=== PATIENT | male | born 2000 | race Caucasian/White ===

== ENCOUNTER 2024-08-19 13:55 | Emergency (ER) | payer OTHER, MEDICARE, SELFPAY ==
[2024-08-19 13:58] VITALS: BP 123/94
[2024-08-19 15:00] VITALS: BMI 16.9
[2024-08-19 15:21] LABS: % Basophils 0.6 % (0-2); % Eosinophils 0.2 % (0-6); % Immature Granulocytes 0.2 % (0-0.5); % Lymphocytes 20.3 % (20.5-51.1); % Monocytes 7.2 % (1.7-9.3); % Neutrophils 71.5 % (42.2-75.2); Absolute Basophils 0.1 10^3/uL (0-0.2); Absolute Monocytes 0.7 10^3/uL (0.1-0.6); Hematocrit 49.3 % (39.0-52.0); Hemoglobin 17.3 g/dL (13.0-18.0); Mean Corp Hgb Conc. 35.1 g/dL (33.0-37.0); Mean Corpuscular Hgb 29.7 pg (27.0-31.0); Mean Corpuscular Volume 84.6 fL (80.0-94.0); Mean Platelet Volume 9.8 fL (7.4-10.4); Nucleated Red Blood Cells % 0 % (-); Platelet Count 279 10^3/uL (130-400); Red Blood Cell Count 5.83 10^6/uL (4.70-6.10); Red Cell Dist. Width 11.9 % (11.5-14.5); White Blood Cell Count 9.8 10^3/uL (4.8-10.8)
--- NOTE | 2024-08-19 15:39 | ED.GENMED ---
History of Present Illness
General
Chief Complaint: Dehydration Symptoms
Source: patient
Exam Limitations: none
Time Seen by Provider: 08/19/24 14:50
Nursing documentation reviewed up to this point in time: agreed with
History of Present Illness
History of Present Illness:
The patient is a pleasant 24-year-old man who reports that this past Tuesday night, which was 2 days ago, he smoked ' bad weed'. Patient reports that he feels this caused him to wake up the next day with nausea and vomiting. Patient reports he has
been unable to keep down fluids and feels he is dehydrated. Patient denies specific abdominal pain other than some mild upper abdominal discomfort. He denies fever and cough. He denies sick contacts. Patient also reports he has had a few
episodes of diarrhea. He denies sore throat and headache. He denies rash.
Past History
Past History
ED Past Medical History: Psychiatric (Anxiety) and Other (ADHD, depression, anxiety, mood disorder)
ED Past Surgical History: Orthopedic
Social History
Tobacco: Non-smoker (VAP)
Alcohol: Other
Drug: Marijuana and Other (History of 'substance abuse')
Personal: Single
Living: with roommate
Employment: Employed
Family History
Family History: Other
Review of Systems
Review of Systems
Allergies reviewed?: Yes
All Other Systems: ROS reviewed and negative except as documented in HPI and ROS
Constitutional: Reports fatigue
EENT: Reports no symptoms
Respiratory: Reports no symptoms
Cardiac: Reports no symptoms
ABD/GI: Reports abdominal pain, nausea, vomiting, diarrhea and anorexia
: Reports no symptoms
Musculoskeletal: Reports no symptoms
Skin: Reports no symptoms
Neurological: Reports no symptoms
Endocrine: Reports no symptoms
Hematologic/Lymphatic: Reports no symptoms
Psychiatric: Reports no symptoms
Phy Exam
Physical Exam
Physical Exam:
Physical Exam
General: no apparent distress, not acutely ill. Very thin
Neck: supple. no meningeal signs. normal psoterior pharynx
Heart: s1/s2 regular rate and rhythm, no murmur. equal radial pulses.
Lungs: no acute respiratory distress. clear bilaterally
Abdomen: Mild upper abdominal tenderness. Abdomen is nondistended. Normal bowel sounds. No lower abdominal or right lower quadrant tenderness. No testicular tenderness.
Neuro: alert and oriented. no focal neurological deficits
Skin: no rash
Psychiatric: well kept. interactive and cooperative
Extremities: no edema. no calf tenderness. negative homans. good distal pulses
Course
Orders/Labs/Results
Orders:
Orders
08/19/24 15:09
Complete Blood Count/With Diff Urgent
Comprehensive Metabolic Panel Urgent
Lipase Urgent
08/19/24 15:36
0.9% Sodium Chloride 1000 ml [Nss] 1,000 ml IV BOLUS
08/19/24 15:37
Ondansetron Injectable [Zofran] 4 mg IV NOW STA
Abnormal Lab Results
08/19/24
15:09
Absolute Neuts (auto) 7.0 H 10^3/uL
(1.4-6.5)
Absolute Monos (auto) 0.7 H 10^3/uL
(0.1-0.6)
Lymphocytes % 20.3 L %
(20.5-51.1)
Calcium 10.6 H mg/dl
(8.4-10.2)
Total Bilirubin 1.7 H mg/dl
(0.2-1.3)
Alkaline Phosphatase 147 H U/L
(38-126)
Total Protein 8.3 H g/dl
(6.3-8.2)
Albumin 5.2 H g/dl
(3.5-5.0)
08/19/24 15:09
08/19/24 15:09
Vital Signs
Initial and Last Documented VS:
Initial Vital Signs
Temp Pulse Resp BP Pulse Ox
98.2 F 82 16 123/94 99
08/19/24 13:58 08/19/24 13:58 08/19/24 13:58 08/19/24 13:58 08/19/24 13:58
Last Documented Vital Signs
Temp Pulse Resp BP Pulse Ox
98.2 F 60 18 103/58 99
08/19/24 13:58 08/19/24 16:00 08/19/24 16:00 08/19/24 16:00 08/19/24 16:00
MDM/Problems Addressed
Differential Diagnosis Includes:
Viral gastroenteritis, acute appendicitis, acute cholecystitis, acute pancreatitis
MDM/Problems Addressed:
Patient presents with acute nausea vomiting and diarrhea
*Pulse Oximetry
Patient hypoxic: no
*EKG
Interpreted by ED Provider?: NA
*Timber Management Specialist Interpretation
Rate: Timber Management Specialist- N/A
*Critical Care Note
Total Time (30-74mins, 75-104mins- exclusive of procedures): Not Applicable
Data Reviewed
Review of Other/Old Records Reveals: Discharge Summary (Discharge summary reviewed from the hospitalist from 2020 patient was admitted for accidental overdose of Wellbutrin)
Patient Management
Social determinants of health affecting care: Living situation and Strong social support
Escalation/DeEscalation of care consider admission/obs:
Patient feels better and is no longer nauseated. He is able to drink fluids without difficulty. Patient's abdomen remains nontender there is no sign of acute cholecystitis or acute appendicitis
ED Attending Note
-
Portions of this chart may have been created with voice recognition software.� Occasional wrong word or��sound alike� substitutions may have occurred due to the inherent limitations of voice recognition software.
Discharge Plan
Departure
Patient Disposition: Home (Routine Discharge)
Date of Disposition: 08/19/24
Time of Disposition: 18:31
Patient with high blood pressure during this ER visit?: No
Condition: Good
Covid-19: Not Applicable
Discharge Problem:
Nausea & vomiting
Instructions: Dehydration, Adult (DC), Fergus Diet, Nausea and Vomiting, Adult (DC)
Prescriptions:
New
ondansetron 4 mg tablet,disintegrating
4 mg PO Q8H PRN (Reason: nausea and vomiting) Qty: 10 0RF
No Action
trazodone 50 MG tablet
50 mg PO HS
bupropion HCl 150 MG tablet extended release 24 hr
150 mg PO DAILY
Patient Comments:
06/02/2020-TAKES WITH XL 300 TO EQUAL 450MG
carbamazepine 200 MG tablet
400 mg PO QPM
melatonin 5 MG tablet
10 mg PO HS
bupropion HCl 300 MG tablet extended release 24 hr
300 mg PO DAILY
Patient Comments:
06/02/2020-TAKES WITH XL 150MG TO EQUAL 450MG
Referrals:
Pino Ramires PA-C [Family Provider] -
Interventions
Interventions:
*Risk Screen - Suicide Last Done: 08/19/24 15:00
*General Assessment Last Done: 08/19/24 15:00
*Neglect/Abuse Screening Last Done: 08/19/24 15:00
ED- Fall Risk Assessment Last Done: 08/19/24 15:13
*ED COVID-19 Vaccine History Last Done: 08/19/24 15:00
ED- Cardiac Assessment Last Done: 08/19/24 15:13
ED- Neurological Assessment Last Done: 08/19/24 15:13
ED- Pulmonary Assessment Last Done: 08/19/24 15:13
Discharge Date and Time
Print Language: SUDANESE
[2024-08-19 15:41] LABS: ALT (SGPT) 27 U/L (0-50); AST (SGOT) 28 U/L (17-59); Albumin 5.2 g/dl (3.5-5.0); Alkaline Phosphatase 147 U/L (38-126); Blood Urea Nitrogen 13 mg/dl (9-20); Calcium 10.6 mg/dl (8.4-10.2); Carbon Dioxide 24 mmol/L (22-30); Chloride 102 mmol/L (98-107); Estimated Creatinine Clearance 112 ml/min; Glucose 89 mg/dl (70-99); Lipase 72 U/L (23-300); Potassium 4.3 mmol/L (3.5-5.1); Sodium 143 mmol/L (135-145); Total Bilirubin 1.7 mg/dl (0.2-1.3); Total Protein 8.3 g/dl (6.3-8.2); eGFR > 60.00
[2024-08-19] MEDS: NSS 1000 IV (15:55)
[2024-08-19] MEDS: ZOFRAN 4 MG IV (15:55)
[2024-08-19 16:00] VITALS: BP 103/58
[2024-08-19 18:00] VITALS: BP 114/74
== END 2024-08-19 18:43 | disposition home or self-care (01) ==
LOC: EMR 13:55
PROVIDERS: EMERGENCY PHYSICIAN Emergency Medicine; FAMILY PHYSICIAN Physician Assistant Medical
DX: R11.2 Nausea with vomiting, unspecified (principal)
CPT/HCPCS: 99284; 96374; 96361; 80053; 83690; 85025

== ENCOUNTER 2025-08-20 08:28 | Emergency (ER) | payer OTHER, SELFPAY ==
[2025-08-20 08:35] VITALS: BP 130/85
--- NOTE | 2025-08-20 08:51 | ED.GENMED ---
History of Present Illness
General
Chief Complaint: Male Genito-Urinary Symptoms
Time Seen by Provider: 08/20/25 08:40
History of Present Illness
History of Present Illness:
Patient is a 25-year-old man presenting to the emergency department with left testicular pain. Patient states that after a shower yesterday he has had intermittent left testicular pain. He describes it as sharp radiating to the left posterior
testicle last about 5 seconds and happens every 5 to 10 minutes. He denies any skin changes changes to how his scrotum feels. He does state the pain radiates to his abdomen. He did have 1 episode of nausea with the pain but no vomiting. No
fevers chills. No urinary changes. No penile discharge. He is sexually active with 1 woman only. No concern for sexually transmitted infection. No prior history with testicular problems.
Past History
Past History
ED Past Medical History: Psychiatric (Anxiety) and Other (ADHD, depression, anxiety, mood disorder)
ED Past Surgical History: Orthopedic
Social History
Tobacco: Non-smoker (VAP)
Alcohol: Other
Drug: Marijuana and Other (History of 'substance abuse')
Personal: Single
Living: with roommate
Employment: Employed
Family History
Family History: Other
Phy Exam
Physical Exam
Physical Exam:
GENERAL: in no acute distress
HEENT: normocephalic, extraocular movements intact, moist oral mucosa
NECK: normal inspection
RESPIRATORY: no respiratory distress, clear to auscultation bilaterally
CARDIOVASCULAR: regular rate and rhythm
ABDOMEN/: Chaperoned by BENEDICT Obrien soft, non-distended, non-tender to palpation, no rebound or guarding, normal inspection of the penis and testicles, no tenderness to palpation to the left testicle, soft, no erythema
EXTREMITIES: non-tender, no edema/swelling
NEUROLOGIC: awake and alert, moves all extremities
SKIN: warm
Course
Orders/Labs/Results
Orders:
Orders
08/20/25 08:50
Ibuprofen [Motrin] 600 mg PO NOW STA
US Scrotum Urgent
Comment:
Reason For Exam: intermittent left testicular pain
08/20/25 10:01
Urinalysis Reflex To Culture Urgent
Date Specimen was Collected: 08/20/25
Time Specimen was Collected: 09:59
Vital Signs
Initial and Last Documented VS:
Initial Vital Signs
Temp Pulse Resp BP Pulse Ox
98.0 F 55 16 130/85 98
08/20/25 08:35 08/20/25 08:35 08/20/25 08:35 08/20/25 08:35 08/20/25 08:35
Last Documented Vital Signs
Temp Pulse Resp BP Pulse Ox
98.0 F 69 16 126/84 100
08/20/25 08:35 08/20/25 10:10 08/20/25 10:10 08/20/25 10:10 08/20/25 10:10
MDM/Problems Addressed
Differential Diagnosis Includes:
Patient is a 25-year-old man presenting to the emergency department with intermittent left testicular pain that happens for 5 seconds every 5 to 10 minutes. On arrival vitals unremarkable and exam is reassuring. Differential is broad but consists
of epididymitis versus UTI versus torsion intermittently versus orchitis. Patient is very well-appearing which is reassuring. Will obtain urinalysis and ultrasound.
*Pulse Oximetry
SaO2: 98
Oxygen Mode of Delivery: Room air
Patient hypoxic: no
*Critical Care Note
Total Time (30-74mins, 75-104mins- exclusive of procedures): Not Applicable
Update Note
Update Note:
Urinalysis not indicative of infection. Ultrasound does show a small cyst in the left epididymal head which is slightly decreased from prior. I did update patient of this finding. He does state that he had pain very similar to this last time he
was here. Per chart review he was here in 2022 with the same pain and ultrasound that time that showed the same cyst. Patient did have the pain during the evaluation and per ultrasound there was no evidence of intermittent torsion. Since
receiving ibuprofen patient does state the frequency has improved. Will discharge patient at this time with outpatient urology follow-up. Strict return precautions given.
ED Attending Note
-
Portions of this chart may have been created with voice recognition software.� Occasional wrong word or��sound alike� substitutions may have occurred due to the inherent limitations of voice recognition software.
Discharge Plan
Departure
Patient Disposition: Home (Routine Discharge)
Date of Disposition: 08/20/25
Time of Disposition: 10:36
Patient with high blood pressure during this ER visit?: No
Discharge Problem:
Pain in left testicle
Prescriptions:
No Action
trazodone 50 MG tablet
50 mg PO HS
bupropion HCl 150 MG tablet extended release 24 hr
150 mg PO DAILY
Patient Comments:
06/02/2020-TAKES WITH XL 300 TO EQUAL 450MG
carbamazepine 200 MG tablet
400 mg PO QPM
melatonin 5 MG tablet
10 mg PO HS
bupropion HCl 300 MG tablet extended release 24 hr
300 mg PO DAILY
Patient Comments:
06/02/2020-TAKES WITH XL 150MG TO EQUAL 450MG
ondansetron 4 mg tablet,disintegrating
4 mg PO Q8H PRN (Reason: nausea and vomiting) Qty: 10 0RF
Referrals:
Hayden Marrufo MD [Active, Urology]
Pino Ramires PA-C [Family Provider, Family Practice]
Activity Restrictions/Additional Instructions:
You were seen in the Emergency Department today for testicular pain. While you were here we performed an ultrasound, which was reassuring. You do have a small cyst that has been seen previously. Please follow-up with urology.
We would like for you to follow up with your primary care physician for further evaluation. If you experience fever, worsening of your symptoms, or develop any other new or concerning symptoms, please return to the Emergency Department immediately.
Please see the attached sheet for additional information.
Interventions
Interventions:
*Risk Screen - Suicide Last Done: 08/20/25 08:35
*General Assessment Last Done: 08/20/25 08:35
*Neglect/Abuse Screening Last Done: 08/20/25 08:35
*ED- Fall Risk Assessment Last Done: 08/20/25 08:56
*ED COVID-19 Vaccine History Last Done: 08/20/25 08:56
*ED Influenza Vaccine History Last Done: 08/20/25 08:56
ED-Male Genitourinary Assessment Last Done: 08/20/25 08:56
Discharge Date and Time
Print Language: DOMINICAN
[2025-08-20 08:56] VITALS: BMI 17.8
[2025-08-20] MEDS: MOTRIN 600 MG PO (08:58)
[2025-08-20 10:10] VITALS: BP 126/84
[2025-08-20 10:24] LABS: Urine Character Clear (Clear)
--- NOTE | 2025-08-20 10:44 | EDRN ---
Reviewed discharge instructions with patient. Verbalized understanding. Ambulated with steady gait to the lobby.
[2025-08-20 10:45] VITALS: BP 129/84
== END 2025-08-20 10:45 | disposition home or self-care (01) ==
LOC: EMR 08:28
PROVIDERS: EMERGENCY PHYSICIAN Student in an Organized Health Care Education/Training Program; FAMILY PHYSICIAN Physician Assistant Medical
DX: N50.812 Left testicular pain (principal); N50.3 Cyst of epididymis; F41.9 Anxiety disorder, unspecified; F32.A Depression, unspecified; F90.9 Attention-deficit hyperactivity disorder, unspecified type
CPT/HCPCS: 99284; 76870; 81003; 93976